=== PATIENT | male | born 1935 | race Caucasian/White ===

== ENCOUNTER 2017-01-14 07:50 | Emergency (ER) | payer OTHER ==
[~2017-01-14 07:50] MED LIST: ACETAMINOPHEN PO; ACTOS; ALPRAZOLAM; ALPRAZOLAM PO; ALPRAZOLAM0.5 M1 PO; AMITRYPTYLINE PO; AMLODIPINE BESYL5 MG PO; ANTIVERT PO; ANUSOL-HC21 GM PR; ASPIRINEC PO; BACITRACIN15 GM OINT EXT; BACITRACIN15 GM TOP; BACLOFEN10 MG; CIPRO PO; COLACE PO; CYCLOBENZAPRINE5 MG PO; DOXYCYCLINE; FLOMAX0.4 MG; GLUCOPHAGE500 MG PO; GLUCOTROL PO; GLYBURIDE PO; GLYNASE; GLYNASE PO; HUMULIN N100 UNIT/1; KEFLEX500 M1 PO; LANTUS SOLOSTAR3 ML SUBQ; LANTUS100 UNITS/ SUBQ; LASIX PO; LEVAQUIN PO; LISINOPRIL PO; LOW DOSE ASPIRI81 M1 PO; MEDI-MECLIZINE25 M1 PO; METFORMIN HCL500 M1 PO; NEURONTIN100 MG PO; NORVASC PO; PERCOCET5/325; PERCOCET5/325 PO; PRAVACHOL PO; PREDNISONE PO; PROSCAR5 MG; PYRIDIUM PO; TYLENOL #3; VALTREX PO; XANAX0.5 MG PO; ZESTRIL5 MG PO; ZETIA
[2017-01-14 08:36] LABS: BASOPHIL# 0.1 X10e3 (0-0.3); BASOPHIL% 0.7 % (0-2.5); EOSINOPHIL# 0.1 X10e3 (0-0.7); EOSINOPHIL% 0.8 % (0.0-7.0); HEMATOCRIT 25.5 % (38.0-50.0); HEMOGLOBIN 8.4 gm/dL (13.0-16.0); LYMPHOCYTE# 2.6 X10e3 (1.0-3.5); LYMPHOCYTE% 30.4 % (17.0-45.0); MEAN CELL VOLUME 83.3 FL (83-96); MEAN CORPUSCULAR HEMOGLOBIN 27.3 PG (28-34); MEAN CORPUSCULAR HGB CONC 32.8 g/dL (30-36); MEAN PLATELET VOLUME 5.9 FL (6.5-11.5); MONOCYTE# 0.5 X10e3 (0-1.0); MONOCYTE% 6.1 % (3.0-12.0); NEUTROPHIL# 5.2 X10e3 (1.5-7.1); PLATELET COUNT 448 X10e3 (140-420); RED BLOOD COUNT 3.06 X10e (3.90-5.60); RED CELL DISTRIBUTION WIDTH 18.7 % (11.0-15.5); WHITE BLOOD COUNT 8.4 X10e3 (4.0-10.5)
[2017-01-14 08:44] LABS: DIFF IND NO
[2017-01-14 09:01] LABS: ALBUMIN SERUM 2.5 g/dL (3.5-5.0); BILIRUBIN, DIRECT 0.1 mg/dL (0.0-0.2); BILIRUBIN,INDIRECT 0.8 mg/dL (0.0-0.9); BILIRUBIN,TOTAL 0.9 mg/dL (0.2-2.0); BUN/CREATININE RATIO 21.11; CALCIUM SERUM 8.1 mg/dL (8.4-10.2); CREATININE SERUM 0.9 mg/dL (0.6-1.4); GLOM FILT RATE Estimated 79.3 mL/min (>60); POTASSIUM 4.2 mmol/L (3.5-5.1); PROTEIN TOTAL SERUM 6.4 g/dL (6.0-8.3)
[2017-01-14 09:24] LABS: URINE SOURCE CLEAN CATCH
[2017-01-14 09:30] LABS: URINE APPEARANCE CLOUDY; URINE BILIRUBIN NEG (NEG); URINE BLOOD 3+ (NEG); URINE COLOR YELLOW; URINE GLUCOSE NEG (NEG); URINE KETONE TRACE (NEG); URINE LEUKOCYTE ESTERASE 1+ (NEG); URINE NITRATE NEG (NEG); URINE PROTEIN 1+ (NEG); URINE SPECIFIC GRAVITY 1.018 (1.003-1.035)
[2017-01-14 09:33] LABS: CULTURE INDICATED? YES; U HYALINE CASTS AUWI 0-2 /[LPF]; URBCS1 AUWI INNUM /[HPF] (0-2); URINE BACTERIA AUWI NEG (NEGATIVE); URINE SQUAMOUS EPITHELIAL CELL NONE SEEN /[HPF]
[2017-01-14] MEDS ORDERED: CLOPIDOGREL75 MG PO (10:49)
[2017-01-14] MEDS ORDERED: ALDACTONE25 MG PO (10:49)
[2017-01-14] MEDS ORDERED: GLUCOTROL PO (10:49)
[2017-01-14] MEDS ORDERED: DOK100 M1 PO (10:50)
[2017-01-14] MEDS ORDERED: AMLODIPINE BESYL5 MG PO (10:50)
[2017-01-14] MEDS ORDERED: METFORMIN HCL500 M3 PO (10:51)
[2017-01-14] MEDS ORDERED: LOPRESSOR PO (10:51)
[2017-01-14] MEDS ORDERED: AMIODARONE HCL400 MG PO (10:52)
[2017-01-14] MEDS ORDERED: SENNA8.6 M1 PO ×2 (10:52→10:57)
[2017-01-14] MEDS ORDERED: ELIQUIS5 MG PO (10:53)
[2017-01-14] MEDS ORDERED: LIPITOR PO (10:54)
[2017-01-14] MEDS ORDERED: BUDESONIDE0.5 MG/2 M INH (10:54)
[2017-01-14] MEDS ORDERED: CYCLOBENZAPRINE5 MG PO (10:55)
[2017-01-14] MEDS ORDERED: XANAX0.5 M1 PO (10:56)
[2017-01-14] MEDS ORDERED: ANTIVERT PO (10:56)
[2017-01-14] MEDS ORDERED: MIRALAX17 GM PO (10:57)
[2017-01-14] MEDS ORDERED: NOVOLOG FL100 UNIT/1 SUBQ (10:58)
[2017-01-14] MEDS ORDERED: LEVEMIR FL100 UNIT/1 SUBQ (10:59)
== END 2017-01-14 12:25 ==
LOC: CED 07:50
PROVIDERS: Emergency Medicine
DX: N20.1 Calculus of ureter (principal); D64.9 Anemia, unspecified; E11.9 Type 2 diabetes mellitus without complications; E78.5 Hyperlipidemia, unspecified
CPT/HCPCS: 36415; 74177; 80048; 80076; 81003; 83690; 85025; 87086; 96361; 96374; 96375; 99284; J2270; J2405; Q9967

== ENCOUNTER 2017-01-19 05:36 | Inpatient (IN) | payer OTHER ==
--- NOTE | ~2017-01-19 | HP ---
Unit #: [id number] #: [id number] Patient: CARINA DORSEY [id number] [address] [address] [id number] I MR#: [id number] NAME: CARINA DORSEY. ROOM: 577 Age: 81 Sex: M Admission Date: 01/19/2017 : 1935 Attending Physician: Emory Chan M.D. Primary Care Physician: Valentin Cat Jr., M.D. HISTORY AND PHYSICAL DIAGNOSES ON ADMISSION Gastrointestinal bleeding and anemia. HISTORY OF PRESENT ILLNESS An 81-year-old patient who is currently at [facility] rehab was transferred to the hospital with GI bleeding. As per patient he was in his usual state of health when he had black tarry stools and therefore he was sent to the hospital. Patient states that he was admitted at [facility] in November and was sent to [facility] for rehab. Patient states that in [facility] he had pneumonia and also had two stents put in for coronary artery disease. Patient states that for last two days he was not feeling well and today he has black tarry stools. He was also complaining of weakness and shortness of air with exertion. Patient also stated that he had abdominal pain which he described as discomfort, mid abdominal, nonradiating and is relieved after receiving medicine in the ER. Patient denies any fever, chills or cough. Patient is complaining of generalized weakness. There is sore throat, sinus congestion. Patient denies any blood in urine. The patient also denies chest pain. No chest discomfort. REVIEW OF SYSTEMS The rest of the review of systems is negative. PAST MEDICAL HISTORY 1. History of recent acute non-ST elevation [place]. 2. Coronary artery disease. Patient underwent cardiac stent. 3. History of anemia. Patient required blood transfusion in [facility]. 4. CHF. 5. Type 2 diabetes mellitus with hemoglobin A1C at 9.1 at [facility]. 6. Hypertension. 7. History of transient AV block. 8. History of melanoma. 9. History of bladder cancer. 10. Hypertension. PAST SURGICAL HISTORY 1. Appendectomy. 2. Hernia repair. ALLERGIES No known drug allergies. Unit #: [id number] #: [id number] Patient: CARINA DORSEY SOCIAL HISTORY Patient denies smoking and drinking. He lives at home by himself. FAMILY HISTORY Family history is positive for coronary artery disease. MEDICATIONS As per half-way patient was on: 1. Glipizide 5 mg p.o. b.i.d. 2. Spironolactone 25 mg p.o. daily. 3. Plavix 75 mg p.o. daily. 4. Colace 100 mg p.o. daily. 5. Norvasc 5 mg p.o. daily. 6. Metformin 500 mg b.i.d. 7. ProMod nutritional supplement. 8. Lopressor 50 mg p.o. b.i.d. 9. Senokot S one tablet daily. 10. Amiodarone 400 mg p.o. b.i.d. 11. Eliquis 5 mg b.i.d. 12. Flomax 0.4 mg p.o. daily. 13. Lipitor 80 mg q.h.s. 14. Budesonide mini-neb treatments. 15. Milk of magnesia p.r.n. 16. Flexeril p.r.n. 17. Xanax p.r.n. 18. Lortab p.r.n. 19. Insulin sliding scale p.r.n. 20. Levemir 30 units subu b.i.d. 21. Clobetasol cream. DIAGNOSTIC STUDIES LABORATORY: The patient's creatinine is 1.1, sodium 139, potassium is 4.9. AST and ALT are within normal limits. Amylase and lipase are normal. WBC is 11.7, hemoglobin was 6.0, platelet count is 354. ASSESSMENT AND PLAN An 81-year-old patient presented to [facility] with black tarry stools. 1. Gastrointestinal bleeding: We will request Dr. Jose Núñez to see patient in consultation. 2. Anemia secondary to acute blood loss: Patient is receiving blood transfusion. He will receive two units of blood transfusion. 3. History of recent myocardial infarction and coronary artery disease: We will do serial cardiac enzymes. 4. History of paroxysmal atrial fibrillation: We will hold the patient's Eliquis. 5. Type 2 diabetes mellitus: Patient is on glipizide. 6. I will consult Cardiology to hold as the patient's Plavix was recently started because of a stent placed. 7. Hypertension: Will continue patient on Norvasc and will also continue patient on Lopressor. 8. Patient was on amiodarone 400 mg b.i.d. from [facility]: He will continue on that. The plan was discussed in detail with the patient's nephew and niece. The plan was discussed in detail with patient also. Unit #: [id number] #: [id number] Patient: CARINA DORSEY ADDENDUM PHYSICAL EXAMINATION GENERAL: Patient was lying comfortably in bed, not in any obvious acute distress. HEENT: Revealed no conjunctival congestion. Sclerae is nonicteric. Pallor is present. NECK: Supple. RESPIRATORY: Revealed breath sounds equally bilaterally. No wheezes or crackles. HEART: Regular rate and rhythm. S1, S2. ABDOMEN: Soft, nontender. Bowel sounds are present. EXTREMITIES: Reveal trace pedal edema. NEUROLOGIC: Patient is alert to person, place, and time. Strength is 4+ bilaterally. VITAL SIGNS: Were reviewed. JOB #: [id number] Dictated by Dane Del Toro/irving TD: 01/19/2017 17:35 JOB #: [id number] HISTORY AND PHYSICAL Page 1 of 1 X Jerome Franks MD HISTORY AND PHYSICAL
--- NOTE | ~2017-01-19 | CO ---
Unit #: [id number] #: [id number] Patient: CARINA DORSEY [id number] [address] [place], [place] [address] [id number] I MR#: [id number] NAME: CARINA DORSEY. ROOM: 577 Age: 81 Sex: M Admission Date: 01/19/2017 : 1935 Attending Physician: Jerome Franks M.D. Primary Care Physician: Valentin Cat Jr., M.D. Consultation Date: 01/19/2017 CONSULTATION REPORT REASON FOR CONSULTATION Anticoagulation management. HISTORY OF PRESENT ILLNESS This is an 81-year-old white male, who had an extensive stay at [facility] in 12/2016, where he was admitted with an acute non-ST elevation myocardial infarction. He also had acute hypoxic respiratory failure with pneumonia and congestive heart failure. He developed atrial fibrillation that was treated with amiodarone and beta-renetta. He was started on anticoagulation with Eliquis. He had a non-ST elevation myocardial infarction and underwent angioplasty with drug-eluting stent to the LAD and diagonal lesions. At discharge, he was on aspirin and Plavix. After his discharge, he went to [facility], which he remained. At [facility], the patient began to have burning pain in his abdomen and noted a black tarry stools. He complained of shortness of breath and generalized weakness. He was sent to the hospital, where he was found to have a hemoglobin initially of 6.0 and received 2 units of packed red blood cells. Eliquis and Plavix were withheld. He is scheduled for an EGD today. He denies any symptoms of angina. He has no paroxysmal nocturnal dyspnea, orthopnea, or leg edema. PAST MEDICAL HISTORY 1. 2D echocardiogram on 11/30/2016 at [facility] that shows an ejection fraction of 45%. There is mild left ventricular hypertrophy, akinetic motion of the basal inferior wall of the left ventricle. All the valves have normal structure and function. 2. Cardiac catheterization on 12/09/[address] Holman at [facility], status post PCI with drug-eluting stents to the LAD and diagonal branch. Angiogram of the right coronary artery showed diffuse luminal irregularities. Distal LAD occluded. There was 90% stenosis to the LAD and first diagonal branch that was reduced to 0%. 3. Chronic systolic heart failure. 4. Hypertension. 5. Transient AV block. 6. Diabetes mellitus type 2. 7. Atrial fibrillation, on Eliquis. 8. Chronic kidney disease. 9. Melanoma. 10. Bladder cancer. 11. Generalized anxiety disorder. 12. Anemia. 13. Former smoker. Unit #: [id number] #: [id number] Patient: CARINA DORSEY PAST SURGICAL HISTORY 1. Appendectomy. 2. Hernia repair. 3. Cholecystectomy. 4. Surgery for bladder cancer. SOCIAL HISTORY The patient is . He quit smoking in 1999, but previously smoked a pack and a half of cigarettes a day. He denies illicit drug or alcohol use. 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 FAMILY HISTORY Positive for coronary artery disease. ALLERGIES Codeine, prednisone, oxaprozin, cortisone, atorvastatin. MEDICATIONS [facility] medications; Glucotrol 5 mg b.i.d., Aldactone 25 mg daily, Plavix 75 mg daily, docusate sodium 100 mg daily, amlodipine 5 mg daily, metformin 500 mg b.i.d., metoprolol tartrate 50 mg b.i.d., senna 8.6 mg b.i.d., amiodarone 400 mg b.i.d., Eliquis 5 mg b.i.d., budesonide 0.5 mg b.i.d., Lipitor 80 mg q.h.s., cyclobenzaprine 5 mg q.h.s. p.r.n., meclizine 25 mg q.6 hours p.r.n., MiraLAX 17 g daily p.r.n., NovoLog 10 units subcu t.i.d. with meals, Levemir 30 units subcu b.i.d., Flomax 0.4 mg daily, milk of magnesia 30 mL daily p.r.n., Xanax 0.5 mg t.i.d. p.r.n., Zofran 4 mg t.i.d. p.r.n., hydrocodone/acetaminophen 5/325 one q.4 hours p.r.n. REVIEW OF SYSTEMS CONSTITUTIONAL: Positive for weakness and fatigue. Reports no weight gain or weight loss. Denies fever or chills. HEENT: No headache, no vision changes or difficulty with swallowing. No dizziness. CARDIOVASCULAR: No symptoms of angina. Denies palpitations. No paroxysmal nocturnal dyspnea or orthopnea. No syncope or near syncope. RESPIRATORY: Positive for dyspnea on exertion. Has no cough or hemoptysis. GASTROINTESTINAL: Positive for abdominal discomfort, nausea, and melenic stools. No diarrhea. EXTREMITIES: Negative for lower extremity edema. PHYSICAL EXAMINATION VITAL SIGNS: Blood pressure 130/60, heart rate is 77, temperature 97.7, BMI of 31. GENERAL: This is a very pleasant well-developed 81-year-old elderly white male, who is in no acute respiratory distress. NEUROLOGIC: He is awake, alert, and oriented. There are no focal weaknesses. NECK: Trachea is midline. No thyromegaly. No lymphadenopathy. No jugular distention. HEART: S1 and S2. Heart sounds are normal. No murmurs. No rubs or clicks. Regular rate and rhythm. LUNGS: Clear without rales, rhonchi, or wheezing. ABDOMEN: Soft with tenderness that is diffuse. Bowel sounds are present. EXTREMITIES: Without leg edema. SKIN: Warm and dry. Unit #: [id number] #: [id number] Patient: CARINA DORSEY DIAGNOSTIC STUDIES LABORATORY RESULTS: Glucose is 266, BUN 26, creatinine 1.1, sodium 139, potassium 4.4. White count 11.7, hemoglobin 6.0, hematocrit 19.7, platelet count is 354. Troponin less than 0.03. CARDIOVASCULAR STUDIES: EKG; sinus rhythm with a first-degree AV block. There is left axis deviation with questionable old inferior infarct. Q-waves noted in III and aVF. QTc prolongation of 490 milliseconds. IMPRESSION 1. Blood loss anemia. 2. Upper gastrointestinal bleed. 3. Recent non-ST elevation myocardial infarction, status post percutaneous coronary intervention of the left anterior descending and diagonal on 12/09/2016. 4. Chronic systolic heart failure with reduced ejection fraction of 45%. 5. Hypertension. 6. Diabetes mellitus type 2. 7. Paroxysmal atrial fibrillation, in normal sinus rhythm. PLAN 1. Cardiology was consulted for anticoagulation management given severe anemia. Eliquis and Plavix were discontinued because of the anemia. His anemia require blood transfusion. 2. Plan for EGD today. 3. Plavix is to be restarted whenever okay with Dr. Jose Núñez to prevent stent thrombosis. 4. This was discussed with the patient and daughter at bedside. 5. We will follow the patient with you. Thank you for allowing us to assist in this patient's care. Dictated by... Debbie Taveras/deborah TD: 01/22/2017 03:20 JOB #: [id number] CONSULTATION REPORT Page 1 of 1 X Alexander Glez APRN X CONSULTATION REPORT
--- NOTE | ~2017-01-19 | HP ---
Unit #: [id number] #: [id number] Patient: CARINA DORSEY [id number] [address] [address] [id number] I MR#: [id number] NAME: CARINA DORSEY. ROOM: 577 Age: 81 Sex: M Admission Date: 01/19/2017 : 1935 Attending Physician: Jerome Franks M.D. Primary Care Physician: Valentin Cat Jr., M.D. HISTORY AND PHYSICAL DIAGNOSES ON ADMISSION Gastrointestinal bleeding and anemia. HISTORY OF PRESENT ILLNESS An 81-year-old patient who is currently at [facility] rehab was transferred to the hospital with GI bleeding. As per patient he was in his usual state of health when he had black tarry stools and therefore he was sent to the hospital. Patient states that he was admitted at [facility] in November and was sent to [facility] for rehab. Patient states that in [facility] he had pneumonia and also had two stents put in for coronary artery disease. Patient states that for last two days he was not feeling well and today he has black tarry stools. He was also complaining of weakness and shortness of air with exertion. Patient also stated that he had abdominal pain which he described as discomfort, mid abdominal, nonradiating and is relieved after receiving medicine in the ER. Patient denies any fever, chills or cough. Patient is complaining of generalized weakness. There is sore throat, sinus congestion. Patient denies any blood in urine. The patient also denies chest pain. No chest discomfort. REVIEW OF SYSTEMS The rest of the review of systems is negative. PAST MEDICAL HISTORY 1. History of recent acute non-ST elevation [place]. 2. Coronary artery disease. Patient underwent cardiac stent. 3. History of anemia. Patient required blood transfusion in [facility]. 4. CHF. 5. Type 2 diabetes mellitus with hemoglobin A1C at 9.1 at [facility]. 6. Hypertension. 7. History of transient AV block. 8. History of melanoma. 9. History of bladder cancer. 10. Hypertension. PAST SURGICAL HISTORY 1. Appendectomy. 2. Hernia repair. ALLERGIES No known drug allergies. Unit #: [id number] #: [id number] Patient: CARINA DORSEY SOCIAL HISTORY Patient denies smoking and drinking. He lives at home by himself. FAMILY HISTORY Family history is positive for coronary artery disease. MEDICATIONS As per shelter patient was on: 1. Glipizide 5 mg p.o. b.i.d. 2. Spironolactone 25 mg p.o. daily. 3. Plavix 75 mg p.o. daily. 4. Colace 100 mg p.o. daily. 5. Norvasc 5 mg p.o. daily. 6. Metformin 500 mg b.i.d. 7. ProMod nutritional supplement. 8. Lopressor 50 mg p.o. b.i.d. 9. Senokot S one tablet daily. 10. Amiodarone 400 mg p.o. b.i.d. 11. Eliquis 5 mg b.i.d. 12. Flomax 0.4 mg p.o. daily. 13. Lipitor 80 mg q.h.s. 14. Budesonide mini-neb treatments. 15. Milk of magnesia p.r.n. 16. Flexeril p.r.n. 17. Xanax p.r.n. 18. Lortab p.r.n. 19. Insulin sliding scale p.r.n. 20. Levemir 30 units subcu b.i.d. 21. Clobetasol cream. DIAGNOSTIC STUDIES LABORATORY: The patient's creatinine is 1.1, sodium 139, potassium is 4.9. AST and ALT are within normal limits. Amylase and lipase are normal. WBC is 11.7, hemoglobin was 6.0, platelet count is 354. ASSESSMENT AND PLAN An 81-year-old patient presented to [facility] with black tarry stools. 1. Gastrointestinal bleeding: We will request Dr. Jose Núñez to see patient in consultation. 2. Anemia secondary to acute blood loss: Patient is receiving blood transfusion. He will receive two units of blood transfusion. 3. History of recent myocardial infarction and coronary artery disease: We will do serial cardiac enzymes. 4. History of paroxysmal atrial fibrillation: We will hold the patient's Eliquis. 5. Type 2 diabetes mellitus: Patient is on glipizide. 6. I will consult Cardiology to hold as the patient's Plavix was recently started because of a stent placed. 7. Hypertension: Will continue patient on Norvasc and will also continue patient on Lopressor. 8. Patient was on amiodarone 400 mg b.i.d. from [facility]: He will continue on that. The plan was discussed in detail with the patient's nephew and niece. The plan was discussed in detail with patient also. Unit #: [id number] #: [id number] Patient: CARINA DORSEY Dictated by Jerome Franks M.D. NOTE Somehow my admission H and P was not transcribed, so I am dictating the physical examination from yesterday. PHYSICAL EXAMINATION GENERAL: Patient was lying comfortably in bed, not in any obvious acute distress. HEENT: Revealed no conjunctival congestion. Sclerae is nonicteric. Pallor is present. NECK: Supple. RESPIRATORY: Revealed breath sounds equally bilaterally. No wheezes or crackles. HEART: Regular rate and rhythm. S1, S2. ABDOMEN: Soft, nontender. Bowel sounds are present. EXTREMITIES: Reveal trace pedal edema. NEUROLOGIC: Patient is alert to person, place, and time. Strength is 4+ bilaterally. VITAL SIGNS: Were reviewed. ADDITIONAL JOB #: [id number] Dictated by Dane Del Toro/brit TD: 01/20/2017 12:41 JOB #: [id number] HISTORY AND PHYSICAL Page 1 of 1 X Jerome Franks MD X HISTORY AND PHYSICAL
--- NOTE | ~2017-01-19 | EKG ---
PATIENT: CARINA DORSEY UNIT #: [id number] Ventricular Rate: 81 BPM Atrial Rate: 81 BPM P-R Interval: 220 ms QRS Duration: 102 ms Q-T Interval: 422 ms QTC Calculation(Bezet): 490 ms P [place]: 20 degrees Calculated R [place]: -18 degrees Diagnosis Line: Sinus rhythm with 1st degree A-V block Diagnosis Line: Prolonged QT Diagnosis Line: Abnormal ECG Diagnosis Line: When compared with ECG of 18-MAR-2016 11:38, Diagnosis Line: Premature atrial complexes are no longer Present Diagnosis Line: QT has lengthened Diagnosis Line: Confirmed by CHUNG ASENCIO MD ([id number]) on Diagnosis Line: 01/20/2017 9:11:36 PM INTERPRETING MD: JESUS
--- NOTE | ~2017-01-19 | OR ---
Unit #: [id number] #: [id number] Patient: CARINA DORSEY [id number] [address] [place], [place] [address] [id number] I MR#: [id number] NAME: CARINA DORSEY. ROOM: 577 Date of Procedure: 01/21/2017 Admission Date: 01/19/2017 Surgeon: Jose Núñez M.D. : 1935 Attending Physician: Jerome Franks M.D. Primary Care Physician: Valentin Cat Jr., M.D. OPERATIVE REPORT ATTENDING PHYSICIAN Dr. Emory Chan. PRIMARY CARE PHYSICIAN Valentin Cat M.D. PREOPERATIVE DIAGNOSIS Gastrointestinal bleed. PROCEDURES PERFORMED Upper gastrointestinal endoscopy and biopsy as well as colonoscopy with polypectomy. POSTOPERATIVE DIAGNOSES For upper endoscopy: The patient had mild diffuse antral gastritis. Otherwise, examination was normal up to third part of duodenum. 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 No active bleeding or blood residue was seen in the stomach or in the upper gastrointestinal tract. For colonoscopy: 1. A single sessile polyp in the cecum, removed using snare polypectomy. 2. Diverticulosis. 3. A lipoma in the proximal ascending colon. 4. Postsurgical changes of colocolic anastomosis in the area of the distal sigmoid along with some ulceration around the anastomosis. Again, no blood or blood residue was seen and no potential source of blood loss was noted. RECOMMENDATIONS The patient can be started on regular diet. In addition, his anticoagulation with Plavix can be resumed in the next 3 to 4 days. We will also monitor his hemoglobin and hematocrit. SEDATION USED MAC. DESCRIPTION OF PROCEDURE Following detailed explanation of potential risks and complications of an upper endoscopy and a colonoscopy, namely perforation, bleeding, and complication related to sedation, the patient was brought to GI lab and laid in the left lateral decubitus position. Lubricated tip of the Unit #: [id number] #: [id number] Patient: CARINA DORSEY Olympus video upper endoscope was passed through the bite block into the proximal esophagus under direct vision. The entire esophageal mucosa was examined and appeared normal. Z-line was nicely demarcated, there being no esophagitis or hiatus hernia. The scope was then advanced into the gastric cavity and the latter was insufflated. Mucosa of the fundus, body, and antrum was examined and mild diffuse antral erythema were noted indicating antral gastritis. Pylorus was intubated with visualization of the duodenal bulb. The latter did not have any evidence of angiodysplasia like seen couple of days ago and no blood or blood residue was seen. The second and third part of the duodenum were normal. Upon withdrawal and retroflexion; incisura, cardia, and greater curve was examined and no additional findings were noted. Biopsies were obtained from the antrum for CLOtest. The scope was then withdrawn in the distal esophagus. The entire esophageal mucosa was examined all the way up to pharynx. No additional findings were noted. The examination table was then turned by 180 degrees and the patient positioned for a colonoscopy. A digital rectal examination was performed, which was normal. Lubricated tip of the Olympus video colonoscope was inserted through the anus and advanced under direct vision. The scope was advanced past rectum into the sigmoid colon. The patient was noted to have a colocolic anastomosis in the area of the distal sigmoid proximally. The right colon was anastomosed to the sigmoid. The scope tip was then navigated all the way up to cecum with visualization of the ileocecal valve and the appendiceal orifice. Preparation was fair with good visualization and photodocumentation was obtained. Successive segments of the colonic mucosa were examined upon withdrawal. A single sessile polyp was noted in the cecum. This was removed using snare polypectomy. It was retrieved and sent for histology. No additional polyps were noted. The patient did have a single lipoma in the proximal ascending colon. In addition, multiple diverticula were seen in the right colon. The scope was then withdrawn in the rectosigmoid area where a side of the anastomosis was noted and some ulceration was seen in this area. The scope was then withdrawn and the patient returned to the recovery area. He tolerated the procedure without any postprocedure complications. Dictated byDane Mack TD: 01/21/2017 13:47 JOB #: [id number] OPERATIVE REPORT Page 1 of 1 X Jose Núñez MD PROCEDURE OPERATIVE NOTE
--- NOTE | ~2017-01-19 | OR ---
Unit #: [id number] #: [id number] Patient: CARINA DORSEY [id number] [address] [place], [place] [address] [id number] I MR#: [id number] NAME: CARINA DORSEY. ROOM: 577 Date of Procedure: 01/19/2017 Admission Date: 01/19/2017 Surgeon: Jose Núñez M.D. : 1935 Attending Physician: Jerome Franks M.D. Primary Care Physician: Valentin Cat Jr., M.D. OPERATIVE REPORT PRIMARY CARE PHYSICIAN Valentin Cat M.D. PREOPERATIVE DIAGNOSES Gastrointestinal bleed. The patient having presented with a history of melena. PROCEDURES PERFORMED Upper gastrointestinal endoscopy and hemorrhage control. POSTOPERATIVE DIAGNOSES 1. The patient had a distal esophageal ring. The latter was not treated as the patient been on anticoagulation. 2. 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 This is actively bleeding. It was treated by injection of epinephrine followed by heater probe application. 3. Rest of the examination up to third part of duodenum was normal. RECOMMENDATIONS It is not clear whether the vascular malformation alone is responsible for the patient's symptomatology as the patient has been on Plavix, achieving the hemostasis on the duodenal bulb. Vascular malformation was quite difficult due to the poor access. An Endoclip was tried, but could not be applied successfully. Recommendations, a repeat endoscopy will be done in 24 to 48 hours along with colonoscopy as the patient also history of remote colon cancer. SEDATION USED Procedural sedation. DESCRIPTION OF PROCEDURE Following detailed explanations of potential risks and complications of an upper endoscopy, namely perforation, bleeding, and complications related to sedation, the patient was brought to GI lab and laid in the left lateral decubitus position. Lubricated tip of the Olympus video upper endoscope was passed through the bite block into the proximal esophagus under direct vision. The entire esophageal mucosa was examined. The patient was noted to have a distal esophageal ring with a classic appearance, although it was felt to be obstructing. It was not dilated due to the fact the patient has been on Plavix. The scope was advanced into the gastric cavity and the latter was insufflated. Mucosa of the fundus, body, and antrum examined and appeared unremarkable. Pylorus was Unit #: [id number] #: [id number] Patient: CARINA DORSEY intubated with visualization of the duodenal bulb. The latter was noted to have vascular malformation in the superior aspect of the bulb. No active bleeding was noted at the time of examination, but it started spontaneously during examination. We then applied a heater probe application. This actually made bleeding worse after that 1: 10,000 epinephrine was injected into the lesion followed by application heater probe. An Endoclip was tried; however, could not be applied due to poor access due to location of the vascular malformation. The area was then thoroughly washed with water and good hemostasis was achieved. The scope was then withdrawn in the stomach and no additional findings noted. The entire esophageal mucosa was examined all the way up to pharynx. No additional findings noted. The patient tolerated the procedure without any postprocedure complications. Dictated by... Dane East TD: 01/21/2017 07:55 JOB #: [id number] OPERATIVE REPORT Page 1 of 1 X Jose Núñez MD X PROCEDURE OPERATIVE NOTE
--- NOTE | ~2017-01-19 | CO ---
Unit #: [id number] #: [id number] Patient: CARINA DORSEY [id number] [address] [place], [place] [address] [id number] I MR#: [id number] NAME: CARINA DORSEY. ROOM: 577 Age: 81 Sex: M Admission Date: 01/19/2017 : 1935 Attending Physician: Jerome Franks M.D. Primary Care Physician: Valentin Cat Jr., M.D. Consultation Date: 01/19/2017 CONSULTATION REPORT ATTENDING PHYSICIAN Dr. Emory Chan REASON FOR CONSULTATION 1. Anemia of acute GI blood loss. 2. Melena. HISTORY Mr. Dorsey is an 81-year-old white gentleman who has been transferred from rehab facility with black tarry stools and a hemoglobin of 6.0. His baseline hemoglobin was 12.9. The patient is unable to provide much history and he seems to be pleasantly confused. He was admitted because of upper GI bleed and melena. In fact, patient was sent from [facility] to rehab facility to [facility]. He initially also mentioned a history of minimal cramping in the upper abdomen. There is no history of fever, chills or rigors. The patient denies any chest pain or syncope. PAST MEDICAL HISTORY Significant for: 1. History of coronary artery disease, status post PTCA and coronary stent placement. 2. History of CHF. 3. History of type 2 diabetes. 4. Hypertension. 5. History of recent non-ST elevation myocardial infarction. 6. History of hypertension. 7. History of malignant melanoma and bladder cancer. 8. History of AV blocks. PAST SURGICAL HISTORY Previous surgeries include: 1. Appendectomy. 2. Herniorrhaphy. MEDICATIONS The patient was taking the following medications prior to admission: 1. Plavix. 2. Aspirin. 3. Glipizide. 4. Spironolactone. 5. Colace. 6. Norvasc. 7. Metformin. 8. Lopressor. Unit #: [id number] #: [id number] Patient: CARINA DORSEY 9. Senokot. 10. Amiodarone. 11. Eliquis. 12. Flomax. 13. Lipitor. 14. Budesonide. 15. Milk of magnesia. 16. Flexeril. 17. Xanax. 18. Insulin. 19. Levemir. 20. Clobetasol. ALLERGIES The patient has no known drug allergies. FAMILY HISTORY Significant for coronary artery disease. None of colon or pancreatic cancer or liver disease. SOCIAL HISTORY The patient does not smoke or drink alcohol. He lives by himself at home. REVIEW OF SYSTEMS A detailed review of organ systems does not reveal any recent weight loss. No history of fevers, chills or rigors. No history of headaches, seizures, chest pain or syncope. No history of cough, expectoration or hemoptysis. No history of dysuria, hematuria or pyuria. No history of focal seizures or extremity weakness. The rest of the review of organ systems is unremarkable. PHYSICAL EXAMINATION GENERAL APPEARANCE: Awake, alert and oriented, appears quite pale and unkempt. VITAL SIGNS: Vital signs are stable with a temperature of 97.8, pulse of 77/minute and regular, respiratory rate 17, blood pressure is 140/54. He weighs 180 pounds which is far below his baseline weight of 225 pounds. He has moderate pallor, there being no icterus, lymphadenopathy or peripheral edema. CARDIOVASCULAR EXAMINATION: Normal heart sounds. No murmurs. LUNGS: Auscultation of the lungs reveal normal breath sounds. Good air entry. ABDOMEN: Soft, nontender. Liver and spleen are not palpable. Bowel sounds normal. DIAGNOSTIC STUDIES LABORATORY: Hemoglobin of 6.0. He is currently getting packed cell transfusion. White count is 11.7 with a left shift. Platelet count is 300. INR is 1.0. Serum chemistry shows a BUN and creatinine of 26 and 1.1. Albumin is 2.4. Baseline albumin is 4. LFTs are normal. CLINICAL IMPRESSION 1. Patient with upper gastrointestinal bleed. 2. Anemia, acute gastrointestinal blood loss. Unit #: [id number] #: [id number] Patient: CARINA DORSEY 3. Underlying coronary artery disease. 4. long-term (1) , antiplatelet and anticoagulant agents. MANAGEMENT PLAN 1. Will proceed with an upper GI endoscopy. 2. Resuscitate the patient with packed cell transfusions. The pros and cons of the procedure, potential risks and complications discussed with the patient and he was reassured. Thank you for asking me to see this pleasant gentleman. I appreciate the consult. Dictated by... Dane East TD: 01/21/2017 11:50 JOB #: [id number] CONSULTATION REPORT Page 1 of 1 X Jose Núñez MD X CONSULTATION REPORT
--- NOTE | ~2017-01-19 | DS ---
Unit #: [id number] #: [id number] Patient: CARINA DORSEY [id number] [address] [place], [place] [address] [id number] MR#: [id number] NAME: CARINA DORSEY. ROOM: 577 Age: 81 Sex: M Admission Date: 01/19/2017 : 1935 Discharge Date: 01/22/2017 Attending Physician: Jerome Franks M.D. Primary Care Physician: Valentin Cat Jr., M.D. DISCHARGE SUMMARY ADMISSION DIAGNOSIS GI bleeding. DISCHARGE DIAGNOSES 1. Upper GI bleeding. 2. 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 3. Anemia secondary to acute blood loss, status post multiple blood transfusions. 4. History of coronary artery disease, status post stent placement on 12/09/2016. 5. History of chronic systolic congestive heart failure. 6. Type 2 diabetes mellitus. 7. History of paroxysmal atrial fibrillation. 8. Ejection fraction of 45%. 9. History of non-ST elevation myocardial infarction. 10. History of bladder cancer. 11. Hypertension. 12. Type [address] Cruz in cardiac consultation. Dr. Jose Núñez in GI consultation. PROCEDURES PERFORMED 1. The patient had upper endoscopy done which revealed mild diffuse antral gastritis. 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 It was injected with epinephrine followed by a probe. 2. The patient had a follow-up EGD done which revealed that the arterial venous malformation was resolved with endotherapy. There was no active bleeding. The patient had a distal esophageal ring done which was not treated due to being on anticoagulation. DIAGNOSTIC DATA LABORATORY: Sodium 140, potassium 3.6, creatinine 0.8. White blood cell count 8.3, hemoglobin 9.1, platelets 318. Please make note that the patient's hemoglobin on admission was 6.0. HOSPITAL COURSE The patient is an 81-year-old admitted to [facility] with GI bleeding. Details are as per admission history and physical. The patient was seen by Dr. Jose Núñez in consultation, who performed EGD which showed arterial venous malformation which was treated. The Unit #: [id number] #: [id number] Patient: CARINA DORSEY patient's bleeding has stopped and his hemoglobin is stable. Anemia secondary to acute blood loss: The patient received multiple blood transfusions and his hemoglobin is stable at 9.1. History of recent coronary artery disease: Status post stent. The patient had stent placed around 40 days ago. His Plavix was held for a few days, but after discussing with Dr. Jose Núñez, we will restart the patient's Plavix today. Please make note that the patient is at risk for frequent GI bleeding, but he needs his Plavix due to recent stent placement. Type 2 diabetes mellitus: The patient's hemoglobin A1c at [facility] was 9.0, but his blood sugars have been running on the lower side. Therefore, I will change his glipizide to only once a day. Kindly follow up on the patient's Accu-Cheks in the facility. PHYSICAL EXAMINATION GENERAL: Today the patient is comfortable. He is not in any acute distress. VITALS: Temperature 97.5, pulse 73 per minute, respiratory rate 16 per minute, blood pressure 136/58. HEENT: No conjunctival congestion. Sclerae nonicteric. NECK: Supple. Trachea central. RESPIRATORY: Decreased breath sounds bilaterally. No wheezes or crackles. HEART: Regular rate and rhythm. S1 and S2. ABDOMEN: Soft and nontender. Bowel sounds are present in all four quadrants. NEUROLOGIC: Strength is 4 out of 5 bilaterally. SKIN: Warm and dry. PSYCHIATRIC: The patient is alert to person, place and time. DISCHARGE CONDITION Stable ACTIVITY As tolerated. DISCHARGE MEDICATIONS 1. Plavix 75 mg p.o. daily. 2. Aldactone 25 mg p.o. daily. 3. Protonix 40 mg p.o. every morning before breakfast. 4. Lasix 40 mg p.o. daily. 5. Potassium chloride 20 mEq p.o. daily. 6. Pulmicort 0.5 mg via mini-neb b.i.d. 7. Zofran 4 mg p.o. t.i.d. p.r.n. nausea/vomiting. 8. Flomax 0.4 mg p.o. daily. 9. Amiodarone 200 mg p.o. b.i.d. for 1 week and then 200 mg p.o. daily. 10. Please make note the patient's Eliquis was discontinued. 11. Metformin 500 mg p.o. b.i.d. Restart in 3 days. 12. Meclizine 25 mg p.o. q.6 h. p.r.n. dizziness. 13. Lipitor 80 mg p.o. at nighttime. 14. Norvasc 5 mg p.o. daily. 15. Lopressor 50 mg p.o. b.i.d. 16. Milk of Magnesia 30 cc p.o. daily p.r.n. 17. MiraLAX 17 g p.o. daily p.r.n. 18. Senokot S 1 tablet p.o. b.i.d. Unit #: [id number] #: [id number] Patient: CARINA DORSEY 19. Please make note the patient's Colace is discontinued as the patient is on Senokot S. 20. Please make note that the patient's glipizide is discontinued as the patient is on Levemir 30 units subcutaneous q.a.m. The patient's blood sugar was on the lower side. Therefore, I have decreased it to once a day as the patient was taking it twice a day in the facility. 21. NovoLog 10 units subcutaneous t.i.d. with meals. Kindly do the patient's Accu-Cheks morning and evening and monitor his blood sugars closely. 22. [place] 5 mg p.o. q.4 h. p.r.n. pain. A prescription for 20 tablets was written. FOLLOWUP 1. The patient should follow up with Dr. Jose Núñez in two to three weeks. 2. Follow up with Dr. Cronin as recommended on 03/23/2017 at 1:15 p.m. The patient will be transferred to rehab. The patient may need long-term care. Please feel free to call us if there are any questions regarding this hospitalization. I called and spoke with the patient's daughter, Jocelyn, and explained to her the plan on discharge. She showed complete understanding to the fact that the patient is at risk for recurrent GI bleeding. Unfortunately, the patient needs to take his Plavix because of recent stent placement. Kindly repeat the patient's CBC and BMP on Thursday. The plan was discussed with Dr. Jose Núñez and also with Dr. Cronin. Total time spent was 40 minutes. Dictated by... Dane Del Toro/misti TD: 01/22/2017 11:52 JOB #: [id number] CC: Dane Mcnally M.D. DISCHARGE SUMMARY Page 1 of 1 X Jerome Franks MD DISCHARGE SUMMARY
[~2017-01-19 05:36] MED LIST changes: +ALDACTONE25 MG PO; +AMIODARONE HCL400 MG PO; +BUDESONIDE0.5 MG/2 M INH; +CLOPIDOGREL75 MG PO; +DOK100 M1 PO; +ELIQUIS5 MG PO; +LEVEMIR FL100 UNIT/1 SUBQ; +LIPITOR PO; +LOPRESSOR PO; +METFORMIN HCL500 M3 PO; +MIRALAX17 GM PO; +NOVOLOG FL100 UNIT/1 SUBQ; +SENNA8.6 M1 PO; +XANAX0.5 M1 PO
[2017-01-19 07:53] LABS: ALBUMIN SERUM 2.4 g/dL (3.5-5.0); ALKALINE PHOSPHATASE 89 U/L (32-92); ALT (SGPT) 16 U/L (10-40); AMYLASE 32 U/L (0-46); AST (SGOT) 27 U/L (10-42); BILIRUBIN,TOTAL 0.3 mg/dL (0.2-2.0); BLOOD UREA NITROGEN 26 mg/dL (9-23); BUN/CREATININE RATIO 23.63; CALCIUM SERUM 7.9 mg/dL (8.4-10.2); CARBON DIOXIDE 24 mmol/L (22-31); CHLORIDE 105 mmol/L (100-111); CREATININE SERUM 1.1 mg/dL (0.6-1.4); GLOM FILT RATE Estimated 62.2 mL/min (>60); GLUCOSE FASTING 266 mg/dL (70-110); LIPASE 41 U/L (22-51); POTASSIUM 4.4 mmol/L (3.5-5.1); PROTEIN TOTAL SERUM 6.1 g/dL (6.0-8.3); SODIUM 139 mmol/L (135-145)
[2017-01-19 07:59] LABS: BILIRUBIN, DIRECT <0.1 mg/dL (0.0-0.2); BILIRUBIN,INDIRECT 0.2 mg/dL (0.0-0.9)
[2017-01-19 08:22] LABS: URINE SOURCE CLEAN CATCH
[2017-01-19 08:30] LABS: BASOPHIL% 0.4 % (0-2.5); EOSINOPHIL% 0.4 % (0.0-7.0); HEMATOCRIT 19.7 % (38.0-50.0); LYMPHOCYTE# 3.7 X10e3 (1.0-3.5); LYMPHOCYTE% 31.5 % (17.0-45.0); MEAN CELL VOLUME 85.1 FL (83-96); MEAN CORPUSCULAR HGB CONC 30.6 g/dL (30-36); MEAN PLATELET VOLUME 6.4 FL (6.5-11.5); MONOCYTE# 0.7 X10e3 (0-1.0); MONOCYTE% 6.3 % (3.0-12.0); NEUTROPHIL# 7.2 X10e3 (1.5-7.1); NEUTROPHIL% 61.4 % (40-75); PLATELET COUNT 354 X10e3 (140-420); RED BLOOD COUNT 2.31 X10e (3.90-5.60); RED CELL DISTRIBUTION WIDTH 18.8 % (11.0-15.5); WHITE BLOOD COUNT 11.7 X10e3 (4.0-10.5)
[2017-01-19 08:44] LABS: URINE APPEARANCE CLEAR; URINE BILIRUBIN NEG (NEG); URINE BLOOD NEG (NEG); URINE COLOR YELLOW; URINE GLUCOSE >1000 MG/DL (NEG); URINE KETONE NEG (NEG); URINE LEUKOCYTE ESTERASE TRACE (NEG); URINE NITRATE NEG (NEG); URINE PROTEIN NEG (NEG); URINE SPECIFIC GRAVITY 1.022 (1.003-1.035)
[2017-01-19 08:46] LABS: DIFF IND YES
[2017-01-19 08:47] LABS: URINE BACTERIA AUWI NEG (NEGATIVE); URINE SQUAMOUS EPITHELIAL CELL OCC /[HPF]
[2017-01-19] MEDS ORDERED: MILK OF MAGNESIA PO (08:59)
[2017-01-19] MEDS ORDERED: FLOMAX0.4 M1 PO (08:59)
[2017-01-19] MEDS ORDERED: ZUPLENZ4 MG PO (09:00)
[2017-01-19] MEDS ORDERED: XANAX0.5 MG PO (09:00)
[2017-01-19] MEDS ORDERED: HYDROCODON-ACE1 EAC7 PO (09:02)
[2017-01-19 09:08] LABS: CULTURE INDICATED? NO
[2017-01-19 10:22] LABS: PLATELET ESTIMATE NORMAL (NORMAL)
[2017-01-19 10:23] LABS: ANISOCYTOSIS MOD
[2017-01-19 10:24] LABS: HYPOCHROMIA SL; MICROCYTOSIS SL; POIKILOCYTOSIS MOD; POLYCHROMASIA SL
[2017-01-19 18:42] LABS: CK TOTAL 28 IU/L (36-174)
[2017-01-20 05:59] LABS: HEMATOCRIT 23.1 % (38.0-50.0); HEMOGLOBIN 7.4 gm/dL (13.0-16.0); MEAN CELL VOLUME 83.9 FL (83-96); MEAN CORPUSCULAR HGB CONC 32.2 g/dL (30-36); MEAN PLATELET VOLUME 6.4 FL (6.5-11.5); RED BLOOD COUNT 2.75 X10e (3.90-5.60); RED CELL DISTRIBUTION WIDTH 17.6 % (11.0-15.5); WHITE BLOOD COUNT 8.5 X10e3 (4.0-10.5)
[2017-01-20 06:50] LABS: CK TOTAL 29 IU/L (36-174)
[2017-01-20 07:28] LABS: BUN/CREATININE RATIO 21.25; CALCIUM SERUM 7.5 mg/dL (8.4-10.2); CREATININE SERUM 0.8 mg/dL (0.6-1.4); GLOM FILT RATE Estimated 83.2 mL/min (>60); POTASSIUM 3.7 mmol/L (3.5-5.1)
[2017-01-21 06:56] LABS: MEAN CELL VOLUME 85.9 FL (83-96); MEAN CORPUSCULAR HEMOGLOBIN 27.5 PG (28-34); MEAN PLATELET VOLUME 6.1 FL (6.5-11.5); RED BLOOD COUNT 3.5 X10e (3.90-5.60); RED CELL DISTRIBUTION WIDTH 18.3 % (11.0-15.5); WHITE BLOOD COUNT 8.2 X10e3 (4.0-10.5)
[2017-01-21 07:01] LABS: HEMOGLOBIN 9.6 gm/dL (13.0-16.0)
[2017-01-21 07:47] LABS: BUN/CREATININE RATIO 12.22; CALCIUM SERUM 7.8 mg/dL (8.4-10.2); CREATININE SERUM 0.9 mg/dL (0.6-1.4); GLOM FILT RATE Estimated 79.3 mL/min (>60); POTASSIUM 3.4 mmol/L (3.5-5.1)
[2017-01-22 05:51] LABS: HEMATOCRIT 28.6 % (38.0-50.0); HEMOGLOBIN 9.1 gm/dL (13.0-16.0); MEAN CELL VOLUME 86.2 FL (83-96); MEAN CORPUSCULAR HEMOGLOBIN 27.6 PG (28-34); MEAN PLATELET VOLUME 6.5 FL (6.5-11.5); RED BLOOD COUNT 3.31 X10e (3.90-5.60); RED CELL DISTRIBUTION WIDTH 18.3 % (11.0-15.5); WHITE BLOOD COUNT 8.3 X10e3 (4.0-10.5)
[2017-01-22 07:02] LABS: ALBUMIN SERUM 2.3 g/dL (3.5-5.0); BILIRUBIN,TOTAL 0.4 mg/dL (0.2-2.0); BUN/CREATININE RATIO 13.75; CALCIUM SERUM 7.9 mg/dL (8.4-10.2); CREATININE SERUM 0.8 mg/dL (0.6-1.4); GLOM FILT RATE Estimated 83.2 mL/min (>60); POTASSIUM 3.6 mmol/L (3.5-5.1)
== END 2017-01-22 17:51 | DRG 378 ==
LOC: CED 05:36 → C5C 08:35 → CEDOF 08:35 → CED 09:29 → C5C 10:43 → CEDOF 10:43 → C5C 01-20 08:19
PROVIDERS: Emergency Medicine; Internal Medicine; Internal Medicine Gastroenterology
PROC: 0DJ08ZZ Inspection of Upper Intestinal Tract, Via Natural or Artificial Opening Endoscopic (ICD-10-PCS; principal; 2017-01-19 19:00)
PROC: 30233N1 Transfusion of Nonautologous Red Blood Cells into Peripheral Vein, Percutaneous Approach (ICD-10-PCS; 2017-01-19 19:00)
PROC: 0DBH8ZX Excision of Cecum, Via Natural or Artificial Opening Endoscopic, Diagnostic (ICD-10-PCS; 2017-01-21 07:15)
PROC: 0DB78ZX Excision of Stomach, Pylorus, Via Natural or Artificial Opening Endoscopic, Diagnostic (ICD-10-PCS; 2017-01-21 07:15)
DX: K31.811 Angiodysplasia of stomach and duodenum with bleeding (principal); D62 Acute posthemorrhagic anemia; E11.65 Type 2 diabetes mellitus with hyperglycemia; I13.0 Hypertensive heart and chronic kidney disease with heart failure and stage 1 through stage 4 chronic kidney disease, or unspecified chronic kidney disease; I50.22 Chronic systolic (congestive) heart failure; I48.0 Paroxysmal atrial fibrillation; I25.10 Atherosclerotic heart disease of native coronary artery without angina pectoris; I25.2 Old myocardial infarction; Z95.5 Presence of coronary angioplasty implant and graft; N18.9 Chronic kidney disease, unspecified; Z85.51 Personal history of malignant neoplasm of bladder; F41.1 Generalized anxiety disorder; Z87.891 Personal history of nicotine dependence; Z90.49 Acquired absence of other specified parts of digestive tract; K29.50 Unspecified chronic gastritis without bleeding; Z79.02 Long term (current) use of antithrombotics/antiplatelets; Z79.82 Long term (current) use of aspirin; Z79.01 Long term (current) use of anticoagulants; Z79.4 Long term (current) use of insulin; K57.90 Diverticulosis of intestine, part unspecified, without perforation or abscess without bleeding; D12.0 Benign neoplasm of cecum; D17.5 Benign lipomatous neoplasm of intra-abdominal organs; K22.2 Esophageal obstruction
CPT/HCPCS: 36415; 80048; 80053; 80076; 81003; 82150; 82550; 82947; 83690; 84484; 85025; 85027; 86850; 86900; 86901; 86923; 87077; 88305; 93005; 94640; 94760; 96361; 96374; 96375; 97162; 97166; 99285; C9113; G8978-GP; G8979-GP; G8980-GP; G8987-GO; G8988-GO; J0171; J1815; J2250; J2550; J2765; P9016

== ENCOUNTER 2017-02-20 20:29 | Inpatient (IN) | payer OTHER ==
[~2017-02-20] VITALS: Ht 182.9 cm; Wt 81.6 kg
--- NOTE | ~2017-02-20 | CR72 ---
[facility] A Service of [facility] RADIOLOGY TEXT RESULTS PATIENT: CARINA DORSEY LOCATION: [place] [address] : [birth year] UNIT #: [id number] AGE: [address]: Jerome Franks MD SEX: M ORDER DR: [id number] [facility] [address] [place], [place] [address] [id number] I MR#: [id number] Acc #: [id number] NAME: CARINA DORSEY. : 1935 SEX: M STUDY DATE/TIME: 02/20/2017 21:25 UNIT: CEDOF ROOM: 64838 STUDY DESCRIPTION: CR Chest Single View Portable Attending Physician: Chely Wilkes M.D. Ordering Physician: Nico Murrieta M.D. Primary Care Physician: Valentin Cat Jr., M.D. MEDICAL IMAGING REPORT This report is preliminary unless electronic signature is present EXAM Chest x-ray, 02/20/2017. HISTORY 81-year-old male in the ED after a reported possible syncopal episode. He complains of weakness and chest congestion. Symptoms began today. TECHNIQUE AP portable chest x-ray. FINDINGS Heart size and pulmonary vascularity are normal. Pulmonary and pleural scarring left lung base. Lungs otherwise clear. Surgical clips in the right axilla. IMPRESSION No active disease. Mild left basilar scarring. Right axillary surgical clips. Dictated by... Victorino Loya M.D. THIS IS AN ELECTRONICALLY VERIFIED REPORT Victorino Loya M.D. at 02/21/2017 4:55 PM EVA/hemalatha TD: 02/21/2017 01:26 JOB #: [id number] MEDICAL IMAGING REPORT Page 1 of 1 COPY
--- NOTE | ~2017-02-20 | EKG ---
PATIENT: CARINA DORSEY UNIT #: [id number] Ventricular Rate: 77 BPM Atrial Rate: 77 BPM P-R Interval: 228 ms QRS Duration: 96 ms Q-T Interval: 426 ms QTC Calculation(Bezet): 482 ms P [place]: 59 degrees Calculated R [place]: -32 degrees Calculated T [place]: 47 degrees Diagnosis Line: Sinus rhythm with 1st degree A-V block Diagnosis Line: Left axis deviation Diagnosis Line: Prolonged QT Diagnosis Line: Abnormal ECG Diagnosis Line: When compared with ECG of 19-JAN-2017 17:54, Diagnosis Line: No significant change was found Diagnosis Line: Confirmed by MIKALA KRUSE MD ([id number]) on Diagnosis Line: 02/21/2017 2:00:44 PM INTERPRETING MD: URIAH MIKE
--- NOTE | ~2017-02-20 | DS ---
Unit #: [id number] #: [id number] Patient: CARINA DORSEY [id number] [address] [address] [id number] I MR#: [id number] NAME: CARINA DORSEY. ROOM: 463 Age: 81 Sex: M Admission Date: 02/21/2017 : 1935 Discharge Date: Attending Physician: Ulysses Ann M.D. Primary Care Physician: Valentin Cat Jr., M.D. DISCHARGE SUMMARY PRIMARY DIAGNOSIS Urinary tract infection, likely yeast. SECONDARY DIAGNOSES 1. Hyperglycemia/uncontrolled diabetes. 2. Generalized weakness with physical deconditioning. 3. History of anemia with recent gastrointestinal bleed and subsequent artificially low hemoglobin A1c during this hospitalization. 4. History of coronary artery disease. 5. History of diastolic congestive heart failure with ejection fraction of 45%, mild. 6. History of paroxysmal atrial fibrillation. 7. History of nonsustained ventricular tachycardia. 8. History of bladder cancer. 9. History of hypertension. HOSPITAL COURSE Mr. Dorsey was brought back in the hospital. Urinalysis was suggestive of UTI and he did receive Rocephin while here in the hospital. Initial urine culture was mixed growth. Repeat urine culture is pending, but there was significant yeast present and moderate number of white blood cells so I am going to give him a 14-day course of Diflucan for symptomatic yeast urinary tract infection. I do not think any additional antibacterials are required at this time. The patient did have hyperglycemia here. I clarified the patient's med rec with him on the day of discharge and learned that he was actually taking long-acting insulin once a day 36 units in addition to metformin twice a day. I am going to restart him on this and give him NovoLog with meals at the rehab facility. He had significant hyperglycemia here, although his hemoglobin A1c was 6.6. This was felt to be artificially low due to his recent acute blood loss anemia and transfusions. In the past, his hemoglobin A1c have ranged most recently in 2008 from 9.8 to 11.2. His Accu-Cheks here have generally been in the 200s. He did have a single low blood sugar of 62 on the morning of admission and so we will not put him back on his full dose of Levemir at this time. DISCHARGE DISPOSITION To subacute rehab. DISCHARGE STATUS Stable. DISCHARGE ACTIVITY Unit #: [id number] #: [id number] Patient: CARINA DORSEY With assistance only. DISCHARGE DIET Diabetic 2000 mg sodium diet. DISCHARGE FOLLOWUP 1. With his PCP in four to eight weeks. 2. Followup with Dr. Jose Núñez in four to eight weeks. 3. Followup with Dr. Cronin with cardiology on March 23 at 1:15 p.m. DISCHARGE MEDICATIONS 1. Diflucan 200 mg p.o. daily for 14 days. 2. Levemir 20 units subcutaneous q.a.m. 3. Metformin 500 mg p.o. b.i.d. 4. Potassium chloride 20 mEq p.o. daily. 5. Protonix 40 mg p.o. daily. 6. Spironolactone 25 mg p.o. daily. 7. Plavix 75 mg p.o. daily. 8. NovoLog 10 units with meals subcutaneous. 9. Lasix 40 mg p.o. daily. 10. Amlodipine 5 mg p.o. daily. 11. Amiodarone 200 mg p.o. daily. Dictated by... Ulysses Ann M.D. MAGGIE/brit TD: 02/24/2017 12:20 JOB #: [id number] DISCHARGE SUMMARY Page 1 of 1 X Ulysses Ann MD X DISCHARGE SUMMARY
--- NOTE | ~2017-02-20 | HP ---
Unit #: [id number] #: [id number] Patient: CARINA DORSEY [id number] [address] [place], [place] [address] [id number] I MR#: [id number] NAME: CARINA DORSEY. ROOM: 463 Age: 81 Sex: M Admission Date: 02/21/2017 : 1935 Attending Physician: Jerome Franks M.D. Primary Care Physician: Valentin Cat Jr., M.D. HISTORY AND PHYSICAL CHIEF COMPLAINT Patient was just discharged from snf today, he said that at home he feels weak and unable to ambulate, and was brought to the emergency room. DISCUSSION This is an 81-year-old gentleman who has a past medical history of coronary artery disease, history of anemia with GI bleed in the past, diabetes, congestive heart failure, paroxysmal atrial fibrillation, non-sustained V-tach, history of hypertension, bladder cancer. He was in snf. He was just discharged from snf today to home. He was at home. He said that he is very weak and unable to walk the floor and was brought to the emergency room. The patient found to have workup as mild urinary tract infection, and unable to take care of himself, possibly needs again rehab placement and being admitted. He denies chest pain, nausea, vomiting, fever, chills, cough or any other complaint. PAST MEDICAL HISTORY 1. History of recent non-ST elevation myocardial infarction in the past. 2. Coronary artery disease underwent cardiac stent on 12/09/16. 3. History of anemia with history of GI bleed. 4. History of past EGD and colonoscopy on 01/21/17 with shows diffuse antral gastritis, diverticulosis, and polypectomy. 5. History of anemia requiring multiple transfusions in the past. 6. History of diabetes which recent A1c was 9.1, in [facility], currently he is not on any diabetic medication. 7. History of hypertension. 8. History of paroxysmal atrial fibrillation. 9. Nonsustained V-tach. 10. History of bladder cancer. 11. History of congestive heart failure, ejection fraction 45%. 12. History of transient AV block. 13. History of melanoma. PAST SURGICAL HISTORY 1. Appendectomy. 2. Hernia repair. 3. History of EDG and colonoscopy on 01/21/17, EGD shows diffuse antral gastritis. 4. Colonoscopy shows diverticulosis with polypectomy. ALLERGIES No known drug allergies. Unit #: [id number] #: [id number] Patient: CARINA DORSEY FAMILY HISTORY The patient has a family history positive for coronary artery disease. SOCIAL HISTORY Denies smoking, denies alcohol, he was in the snf for rehab, just left for home today. HOME MEDICATIONS Medications from home is the followin. Aldactone 25 mg daily 2. Amlodipine 5 mg daily 3. Protonix 40 mg daily 4. Lasix 40 mg daily 5. Potassium chloride 20 mEq daily 6. Amiodarone 200 mg daily 7. Plavix 75 mg daily REVIEW OF SYSTEMS Negative except for history of present illness. PHYSICAL EXAMINATION GENERAL: Middle-aged man, lying in the bed comfortably, currently not in any distress. He is alert, awake, and oriented x3, currently not in any distress. VITAL SIGNS: Current vitals are the following, temperature is afebrile, heart rate 86, respiratory rate 20, blood pressure 149/64. HEENT EXAMINATION: Pupils equal reactive to light and accommodation. Head: Normocephalic and atraumatic. NECK: Supple. No jugular venous distention. HEART: S1 and S2, regular rate and rhythm. LUNGS: Clear to auscultation bilaterally. No rhonchi. No wheezing. ABDOMEN: Soft, nontender, and nondistended. Bowel sounds are positive. EXTREMITIES: Inspection normal. No cyanosis, no clubbing, and no edema. NEUROLOGIC: Alert and oriented x3, cranial nerves II through XII intact. No focal neurologic deficit. DIAGNOSTIC STUDIES LABORATORY: Laboratory workup is the following, today, his urinalysis shows WBC 10/20, sodium 136, potassium 4.6, chloride 103, CO2 25, glucose 273, BUN 24, creatinine 1.3, LFT within normal limits, glucose 278, white count is 7, hemoglobin is 8.6, hemoglobin 26, platelets 277. IMAGING: Chest x-ray negative. ASSESSMENT/PLAN 1. Urinary tract infection, will start the patient on IV Rocephin. 2. Hyperglycemia, place on sliding scale, not on diabetic medication, will recheck his A1c. 3. Generalized weakness, he was in snf, just left the snf today, I think he needs again snf replacement, will ask the chart manufacturing planner to evaluate and PT and OT to evaluate. 4. History of anemia with history of GI bleed, requiring admission in January 2017, which at that time he had a workup, EGD and colonoscopy, EGD shows diffuse antral gastritis. Colonoscopy shows diverticulosis with polypectomy, no bleed, will monitor H and H. 5. History of coronary artery disease, status post stent. 6. History of congestive heart failure with ejection fraction of 45%. 7. Diabetes. Unit #: [id number] #: [id number] Patient: CARINA DORSEY 8. History of proximal atrial fibrillation. 9. Nonsustained V-tach. 10. History of bladder cancer. 11. Hypertension. Dictated by Chely Wilkes M.D. LUIS/trudi TD: 02/21/2017 08:33 JOB #: [id number] HISTORY AND PHYSICAL Page 1 of 1 X X HISTORY AND PHYSICAL
[~2017-02-20 20:29] MED LIST changes: +FLOMAX0.4 M1 PO; +HYDROCODON-ACE1 EAC7 PO; +MILK OF MAGNESIA PO; +ZUPLENZ4 MG PO
[2017-02-20] MEDS ORDERED: PROTONIX PO (20:43)
[2017-02-20] MEDS ORDERED: FUROSEMIDE40 MG PO (20:43)
[2017-02-20] MEDS ORDERED: CLOPIDOGREL75 MG PO (20:44)
[2017-02-20] MEDS ORDERED: K-DUR20 ME1 PO (20:44)
[2017-02-20] MEDS ORDERED: AMIODARONE HCL200 MG PO (20:44)
[2017-02-20] MEDS ORDERED: ALDACTONE25 MG PO (20:45)
[2017-02-20] MEDS ORDERED: AMLODIPINE BESYL5 MG PO (20:45)
[2017-02-20 21:44] LABS: BASOPHIL# 0.1 X10e3 (0-0.3); BASOPHIL% 0.8 % (0-2.5); EOSINOPHIL# 0.2 X10e3 (0-0.7); EOSINOPHIL% 2.6 % (0.0-7.0); HEMATOCRIT 26.7 % (38.0-50.0); HEMOGLOBIN 8.6 gm/dL (13.0-16.0); LYMPHOCYTE# 1.6 X10e3 (1.0-3.5); LYMPHOCYTE% 20.9 % (17.0-45.0); MEAN CELL VOLUME 82.1 FL (83-96); MEAN CORPUSCULAR HEMOGLOBIN 26.4 PG (28-34); MEAN CORPUSCULAR HGB CONC 32.1 g/dL (30-36); MEAN PLATELET VOLUME 6.6 FL (6.5-11.5); MONOCYTE# 0.6 X10e3 (0-1.0); MONOCYTE% 7.4 % (3.0-12.0); NEUTROPHIL# 5.4 X10e3 (1.5-7.1); NEUTROPHIL% 68.3 % (40-75); PLATELET COUNT 277 X10e3 (140-420); RED BLOOD COUNT 3.26 X10e (3.90-5.60); RED CELL DISTRIBUTION WIDTH 18.8 % (11.0-15.5); WHITE BLOOD COUNT 7.9 X10e3 (4.0-10.5)
[2017-02-20 21:47] LABS: DIFF IND NO
[2017-02-20 22:00] LABS: URINE SOURCE CLEAN CATCH
[2017-02-20 22:07] LABS: URINE APPEARANCE CLEAR; URINE BILIRUBIN NEG (NEG); URINE BLOOD NEG (NEG); URINE COLOR YELLOW; URINE GLUCOSE 500 MG/DL (NEG); URINE KETONE NEG (NEG); URINE LEUKOCYTE ESTERASE 1+ (NEG); URINE NITRATE NEG (NEG); URINE PROTEIN TRACE (NEG); URINE SPECIFIC GRAVITY 1.023 (1.003-1.035)
[2017-02-20 22:10] LABS: CULTURE INDICATED? YES; URBCS1 AUWI 0-2 /[HPF] (0-2); URINE BACTERIA AUWI NEG (NEGATIVE); URINE SQUAMOUS EPITHELIAL CELL OCC /[HPF]
[2017-02-20 22:12] LABS: ALBUMIN SERUM 3.2 g/dL (3.5-5.0); BILIRUBIN, DIRECT 0.1 mg/dL (0.0-0.2); BILIRUBIN,INDIRECT 0.1 mg/dL (0.0-0.9); BILIRUBIN,TOTAL 0.2 mg/dL (0.2-2.0); BUN/CREATININE RATIO 18.46; CALCIUM SERUM 8.9 mg/dL (8.4-10.2); CREATININE SERUM 1.3 mg/dL (0.6-1.4); GLOM FILT RATE Estimated 50.8 mL/min (>60); POTASSIUM 4.6 mmol/L (3.5-5.1); PROTEIN TOTAL SERUM 7.2 g/dL (6.0-8.3)
[2017-02-21 13:46] LABS: BASOPHIL# 0.1 X10e3 (0-0.3); BASOPHIL% 0.9 % (0-2.5); EOSINOPHIL# 0.4 X10e3 (0-0.7); EOSINOPHIL% 4.4 % (0.0-7.0); HEMATOCRIT 29.1 % (38.0-50.0); LYMPHOCYTE# 2.7 X10e3 (1.0-3.5); LYMPHOCYTE% 32.8 % (17.0-45.0); MEAN CELL VOLUME 82.4 FL (83-96); MEAN CORPUSCULAR HEMOGLOBIN 25.6 PG (28-34); MEAN CORPUSCULAR HGB CONC 31.1 g/dL (30-36); MEAN PLATELET VOLUME 6.7 FL (6.5-11.5); MONOCYTE# 0.6 X10e3 (0-1.0); MONOCYTE% 7.2 % (3.0-12.0); NEUTROPHIL# 4.5 X10e3 (1.5-7.1); NEUTROPHIL% 54.7 % (40-75); PLATELET COUNT 320 X10e3 (140-420); RED BLOOD COUNT 3.53 X10e (3.90-5.60); RED CELL DISTRIBUTION WIDTH 18.2 % (11.0-15.5); WHITE BLOOD COUNT 8.3 X10e3 (4.0-10.5)
[2017-02-21 13:48] LABS: DIFF IND NO
[2017-02-21 13:58] LABS: BUN/CREATININE RATIO 17.27; CALCIUM SERUM 9.2 mg/dL (8.4-10.2); CREATININE SERUM 1.1 mg/dL (0.6-1.4); GLOM FILT RATE Estimated 62.2 mL/min (>60); POTASSIUM 4.7 mmol/L (3.5-5.1)
[2017-02-23 17:26] LABS: URINE APPEARANCE CLEAR; URINE BILIRUBIN NEG (NEG); URINE BLOOD NEG (NEG); URINE COLOR YELLOW; URINE GLUCOSE 250 MG/DL (NEG); URINE KETONE NEG (NEG); URINE LEUKOCYTE ESTERASE 1+ (NEG); URINE NITRATE NEG (NEG); URINE PROTEIN NEG (NEG); URINE SPECIFIC GRAVITY 1.016 (1.003-1.035); URINE UROBILINOGEN 0.2 MG/DL (NEG)
[2017-02-23 17:28] LABS: URBCS1 AUWI 0-2 /[HPF] (0-2); URINE BACTERIA AUWI NEG (NEGATIVE); URINE SQUAMOUS EPITHELIAL CELL NONE SEEN /[HPF]
[2017-02-23 17:40] LABS: URINE MUCUS PRESENT; URINE YEAST PRESENT
[2017-02-24 12:45] LABS: URINE APPEARANCE CLEAR; URINE BILIRUBIN NEG (NEG); URINE BLOOD NEG (NEG); URINE COLOR YELLOW; URINE GLUCOSE NEG (NEG); URINE KETONE NEG (NEG); URINE LEUKOCYTE ESTERASE NEG (NEG); URINE NITRATE NEG (NEG); URINE PH 5.5 (5-8); URINE PROTEIN NEG (NEG); URINE SPECIFIC GRAVITY 1.019 (1.003-1.035); URINE UROBILINOGEN 0.2 MG/DL (NEG)
[2017-02-24 12:50] LABS: CULTURE INDICATED? NO
== END 2017-02-24 13:45 | DRG 690 ==
LOC: CED 20:29 → CEDOF 23:58 → CED 02-21 00:22 → C4C 02-21 01:35 → CEDOF 02-21 01:35 → C4C 02-21 07:09
PROVIDERS: Emergency Medicine; Internal Medicine
DX: N39.0 Urinary tract infection, site not specified (principal); E11.65 Type 2 diabetes mellitus with hyperglycemia; I11.0 Hypertensive heart disease with heart failure; I50.22 Chronic systolic (congestive) heart failure; I48.0 Paroxysmal atrial fibrillation; D64.9 Anemia, unspecified; R53.1 Weakness; Z85.51 Personal history of malignant neoplasm of bladder; Z79.4 Long term (current) use of insulin
CPT/HCPCS: 36415; 71010; 80048; 80076; 81003; 82947; 83036; 85025; 87086; 93005; 97110; 97116; 97162; 97166; 97530; 99285; G8978-GP; G8979-GP; G8987-GO; G8988-GO; J0696; J1815